=== PATIENT | male | born 1960 | race Caucasian/White ===

== ENCOUNTER → 2018-03-16 | Outpatient (CLI) | payer OTHER ==
[~2018-03-16] MED LIST: ESC10 PO; IBUP200C74 PO; LEVO-3 PO; LEVO175T42 PO; LEVO75TA73 PO
[2018-03-16 12:31] LABS: PLATELET COUNT, AUTOMATED 323 K/uL (150-450)
[2018-03-16 12:52] LABS: LDL CHOLESTEROL 131 mg/dl
== END ==
LOC: LAB 12:08
PROVIDERS: ATTEND Internal Medicine
DX: F41.9 Anxiety disorder, unspecified (principal); R03.0 Elevated blood-pressure reading, without diagnosis of hypertension; E78.2 Mixed hyperlipidemia; E03.9 Hypothyroidism, unspecified; R73.9 Hyperglycemia, unspecified
CPT/HCPCS: 36415; 81001; 82040; 82247; 82310; 82374; 82435; 82465; 82565; 82947; 83036; 83718; 84075; 84132; 84153; 84155; 84295; 84439; 84443; 84450; 84460; 84478; 84520; 85025